=== PATIENT | male | born 1955 | race Caucasian/White ===

== ENCOUNTER 2023-05-29 02:50 | Inpatient (IN) | payer MEDICARE, MEDICAID ==
[~2023-05-29] VITALS: Ht 172.7 cm; Wt 83.3 kg
[2023-05-29] VITALS (28 sets, daily range): BP systolic 83–177; BP diastolic 41–76
[~2023-05-29 02:50] MED LIST: ALBU18HF2 INH; ATOR40TA72 PO; BISO10TA16 PO; BUPR300T86 PO; CLOP75TA34 PO; IPRA4AER PO; LISI20TA28 PO; SPIR25TA5 PO
[2023-05-29 03:22] LABS: ABG BASE EXCESS -18.9 mmol/L (-2.0-2.0); ABG HCO3 11.4 mmol/L (22.0-26.0); ABG OXYGEN SATURATION 99.5 % (94-97); ABG PO2 (T) 489.9 mmHg (75.0-100.0); ALLEN'S TEST POSITIVE; FMetHb 0.5 % (0.0-1.5); PATIENT TEMPERATURE 35.4; PEEP 5 cm H2O; RESPIRATORY RATE 18 b/min; TIDAL VOLUME 500 mL; TOTAL HEMOGLOBIN 16.7 G/dl (14.0-17.9)
--- NOTE | 2023-05-29 03:33 | NUR ---
PTS GIRLFRIEND MANNIE AT BEDSIDE, SHE IS UNAWARE OF HIS MEDICAL HISTORY. SHE DOES NOT KNOW OF ANY LOCAL FAMILY WHO WE CAN CONTACT FOR THIS INFORMATION
--- NOTE | 2023-05-29 03:37 | NUR ---
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
--- NOTE | 2023-05-29 03:37 | NUR ---
DAUGHTER SHANELL CALLED, VOICEMAIL LEFT
--- NOTE | 2023-05-29 03:42 | NUR ---
7.5 ET TUBE 26 AT THE TEETH
[2023-05-29 03:53] LABS: ALANINE AMINOTRANSFERASE 99 U/L (12-78); ALBUMIN 2.9 G/DL (3.4-5.0); ALBUMIN/GLOBULIN RATIO 0.9 (1.1-1.5); ALKALINE PHOSPHATASE 114 IU/L (46-116); ANION GAP 19 (8-16); BILIRUBIN,TOTAL 0.4 MG/DL (0.1-1.0); BLOOD UREA NITROGEN 33 MG/DL (7-18); BUN/CREATININE RATIO 11.3 (10.0-20.0); CALCIUM 9.9 MG/DL (8.5-10.1); CHLORIDE 108 MMOL/L (99-107); CREATININE 2.92 MG/DL (0.60-1.10); GLUCOSE 260 MG/DL (70-104); SODIUM 144 MMOL/L (135-145); TOTAL CARBON DIOXIDE 16.6 MMOL/L (24-32); eGFR 21 ML/MIN
[2023-05-29 03:55] LABS: BASOPHILS # (AUTO) 0.1 X10'3 (0-0.2); BASOPHILS % (AUTO) 0.4 % (0-1); EOSINOPHILS # (AUTO) 1.4 X10'3 (0-0.9); EOSINOPHILS % (AUTO) 4.6 % (0-6); HEMATOCRIT 48.4 % (42.0-52.0); HEMOGLOBIN 15.6 g/dl (14.0-17.9); LYMPHOCYTES # (AUTO) 8.4 X10'3 (1.1-4.8); LYMPHOCYTES % (AUTO) 28.5 % (21-51); MEAN CORPUSCULAR HEMOGLOBIN 30.2 PG (27.0-31.0); MEAN CORPUSCULAR HGB CONC 32.3 g/dL (33.0-36.5); MEAN CORPUSCULAR VOLUME 93.5 FL (78-98); MEAN PLATELET VOLUME 9.8 FL (7.4-10.4); MONOCYTES # (AUTO) 1.1 X10'3 (0-0.9); MONOCYTES % (AUTO) 3.8 % (2-12); NEUTROPHILS # (AUTO) 18.6 X10'3 (1.8-7.7); NEUTROPHILS % (AUTO) 62.7 % (42-75); PLATELET COUNT 253 X10'3 (140-440); POTASSIUM 4.4 MMOL/L (3.5-5.1); RED BLOOD COUNT 5.18 X10'6 (4.70-6.10); RED CELL DISTRIBUTION WIDTH 13.4 % (11.5-14.5)
[2023-05-29] MEDS ORDERED: methylPREDNISolone sod succ 125mg/2ml vial IV ONE (03:55)
[2023-05-29 04:00] LABS: CLARITY,URINE CLOUDY (Clear); COLOR,URINE YELLOW (Yellow); GLUCOSE, URINE NEGATIVE (Neg); KETONES,URINE NEGATIVE (Neg); LEUKOCYTE ESTERASE ,URINE TRACE (Neg); NITRITES, URINE NEGATIVE (Neg); OCCULT BLOOD,URINE MODERATE (Neg); PROTEIN,URINE >=300 mg/dl (Neg); UROBILINOGEN,URINE 0.2 E.U/dL (0.2-1.0)
[2023-05-29] MEDS ORDERED: piperacillin/tazo 3.375gm/50ml 50 ML IV ONE ×2 (04:00→13:35)
[2023-05-29 04:01] LABS: UA COLLECTION TYPE NON-SPECIFIED
[2023-05-29] MEDS ORDERED: ipratropium/albuterol 3ml nebule NEB ONE (04:05)
[2023-05-29] MEDS ORDERED: iohexol 350MG/ML 100ml bottle IV ONE (04:09)
[2023-05-29 04:10] LABS: ASPARTATE AMINO TRANSFERASE 129 U/L (10-37)
--- NOTE | 2023-05-29 04:12 | NUR ---
WORLD HISTORY TEACHER CALLED AT 03:45. CALL GIVEN TO DR. FIERRO TO DISCUSS PT.
--- NOTE | 2023-05-29 04:13 | NUR ---
PT RECEIVED 1L BOLUS NS RESPIRATORY EQUIPMENT ASSISTANT. PER DR FIERRO NO MORE FLUIDS AT THIS TIME
[2023-05-29 04:18] LABS: WHITE BLOOD COUNT 29.7 X10'3 (4.5-11.0)
[2023-05-29 04:25] LABS: BACTERIA,URINE NONE SEEN /HPF (Neg); WBC,URINE 30-50 /HPF (0-4)
[2023-05-29 04:26] LABS: TRANSITIONAL EPI CELLS,URINE FEW /HPF
[2023-05-29 04:28] LABS: SPERM MANY /HPF (NEGATIVE)
[2023-05-29] MEDS ORDERED: ketamine 50 mg/ml 10ml vial IV ONE (04:35)
[2023-05-29] MEDS ORDERED: magnesium 4gm in 100ml NS 100 ML IV ONE (04:40)
[2023-05-29] MEDS ORDERED: magnesium 2GM in 50ml NS 50 ML IV ONE (04:40)
[2023-05-29] MEDS ORDERED: furosemide 10 MG/1 ML 10ml inj IV ONE (04:40)
[2023-05-29] MEDS ORDERED: ketamine 10mg/ml 20ml inj 100 MG in normal saline 100ml IV soln 90 ML IV SCH (04:40)
[2023-05-29] MEDS ORDERED: potassium Cl 40MEQ/1/2NS 520ml 520 ML IV PRN (04:50)
[2023-05-29] MEDS ORDERED: PERFLUTREN PROTEIN-A MICROSPHR (Optison) 0.22 MG/ML 3ML VIAL IV ONE (04:50)
[2023-05-29] MEDS ORDERED: mag hydrox/Alum hydrox/simeth 30ml oral suspension PO PRN (04:50)
[2023-05-29] MEDS ORDERED: acetaminophen 325mg tablet PO PRN (04:50)
[2023-05-29] MEDS ORDERED: potassium Cl 20 mEq SR tablet PO PRN ×2 (04:50)
[2023-05-29] MEDS ORDERED: magnesium 2GM in 50ml NS 50 ML IV PRN (04:50)
[2023-05-29] MEDS ORDERED: magnesium hydroxide 30ml (MOM) UD suspension PO PRN (04:50)
[2023-05-29] MEDS ORDERED: ketamine 50mg/5ml syringe IV ONE (04:50)
[2023-05-29] MEDS ORDERED: magnesium Cl slow-release 64mg tablet PO PRN (04:50)
[2023-05-29] MEDS ORDERED: magnesium 4gm in 100ml NS 100 ML IV PRN (04:50)
[2023-05-29] MEDS ORDERED: insulin glargine (Lantus) pen - multi-dose SQ ONE (05:20)
--- NOTE | 2023-05-29 05:21 | NUR ---
PTS BROTHER CALLED FAMILY WISHES FULL CODE STATUS
[2023-05-29] MEDS ORDERED: NORepinephrine 8mg/ 250ml NS 250 ML IV ONE (05:27)
--- NOTE | 2023-05-29 05:33 | NUR ---
ECHO PAGED AT 05:25. WILL PAGE AGAIN AT 05:35 IF NOT CONTACTED.
--- NOTE | 2023-05-29 05:36 | NUR ---
NO RESPONSE FROM ECHO FOR THE 05:25 PAGE. PAGED AGAIN 05:36.
[2023-05-29 05:38] LABS: ABG BASE EXCESS -11.6 mmol/L (-2.0-2.0); ABG OXYGEN SATURATION 92.9 % (94-97); ABG PCO2 (T) 39.1 mmHg (35.0-48.0); ABG PO2 (T) 64.5 mmHg (75.0-100.0); ALLEN'S TEST POSITIVE; FMetHb 0.3 % (0.0-1.5); FO2Hb 90.8 % (94-97); PATIENT TEMPERATURE 35.5; PEEP 5 cm H2O; RESPIRATORY RATE 22 b/min; TIDAL VOLUME 500 mL
[2023-05-29] MEDS: NORepinephrine 8mg/ 250ml NS 250 ML IV SCH ×2 (05:38→20:00)
[2023-05-29] MEDS ORDERED: fentaNYL/PF 50MCG/1 ML 2ML syringe ONE (05:45)
[2023-05-29] MEDS ORDERED: fentaNYL/PF 50MCG/1 ML 2ML syringe IV ONE (05:45)
--- NOTE | 2023-05-29 05:46 | NUR ---
DIRECT NUMBER TO ECHO WAS GIVEN BY HOUSE SUP. CONTACTED AND THEY ARE ON THEIR WAY IN.
--- NOTE | 2023-05-29 05:55 | NUR ---
Karen Álvarez, daughter, given update. She lives in [place]. [phone]
[2023-05-29 06:04] LABS: TOTAL CELLS COUNTED 100
[2023-05-29 06:06] LABS: PLATELET ESTIMATE NORMAL
[2023-05-29] MEDS ORDERED: NORepinephrine 8mg/ 250ml NS 250 ML IV PRN (06:15)
--- NOTE | 2023-05-29 06:24 | NUR ---
KETAMINE DRIP STARTED AT 1.99 MCG/KG/MIN
[2023-05-29 06:58] LABS: URINE AMPHETAMINE SCREEN NEGATIVE (Neg); URINE BARBITUATE SCREEN NEGATIVE (Neg); URINE BENZODIAZEPINES SCREEN NEGATIVE (Neg); URINE CANNABINOID SCREEN NEGATIVE (Neg); URINE COCAINE SCREEN NEGATIVE (Neg); URINE METHADONE SCREEN NEGATIVE (Neg); URINE OPIATE SCREEN NEGATIVE (Neg); URINE PHENCYCLIDINE SCREEN NEGATIVE (Neg)
[2023-05-29 07:23] LABS: POTASSIUM 5.7 MMOL/L (3.5-5.1)
[2023-05-29] MEDS ORDERED: epiNEPHrine 0.1mg/ml 10ml syringe ONE (08:00)
[2023-05-29] MEDS ORDERED: sodium bicarbonate (8.4%) 1 mEq/ml syringe ONE (08:00)
[2023-05-29] MEDS ORDERED: heparin, porcine 5000 units/ml vial SQ SCH (08:00)
[2023-05-29] MEDS ORDERED: albuterol 2.5 MG/3 ML nebule NEB SCH (08:00)
[2023-05-29] MEDS ORDERED: rocuronium 10mg/ml inj IV ONE ×2 (08:00→11:45)
[2023-05-29] MEDS: K and/or MAG REPLACEMENT MC SCH ×2 (08:00→19:54)
[2023-05-29] MEDS ORDERED: docusate sod 100mg capsule PO SCH (08:00)
[2023-05-29] MEDS ORDERED: sod chloride 0.9% 10ml flush syringe IV ONE (08:00)
[2023-05-29] MEDS ORDERED: calcium chloride 100 MG/1 ML inj IV ONE (08:00)
[2023-05-29] MEDS: albuterol 2.5 MG/3 ML nebule NEB PRN (08:57)
[2023-05-29] MEDS ORDERED: CISatracurium **Bolus** 2 mg/ml inj IV PRN (09:00)
[2023-05-29] MEDS ORDERED: fentaNYL/PF 50MCG/1 ML 2ML syringe IV PRN (09:00)
[2023-05-29] MEDS ORDERED: pantoprazole 40mg IV 80 MG in normal saline 100ml IV soln 100 ML IV SCH (09:05)
[2023-05-29] MEDS: FENTANYL-0.9 % NACL/PF 100 ML IV PRN ×2 (09:47→19:09)
[2023-05-29] MEDS: propofol 1000mg/100ml bottle 100 ML IV SCH (09:47)
[2023-05-29] MEDS: montelukast 10mg tablet PO SCH (10:41)
[2023-05-29] MEDS: niCARDipine-NS 40mg/200ml IVPB 250 ML IV PRN (10:42)
[2023-05-29 11:01] LABS: ALBUMIN 3.2 G/DL (3.4-5.0); ANION GAP 16 (8-16); BLOOD UREA NITROGEN 41 MG/DL (7-18); BUN/CREATININE RATIO 14.7 (10.0-20.0); CALCIUM 8.6 MG/DL (8.5-10.1); CHLORIDE 110 MMOL/L (99-107); CREATININE 2.78 MG/DL (0.60-1.10); GLUCOSE 209 MG/DL (70-104); MAGNESIUM 3.7 MG/DL (1.5-2.4); PHOSPHORUS 3.6 MG/DL (2.3-4.5); POTASSIUM 4.2 MMOL/L (3.5-5.1); SODIUM 142 MMOL/L (135-145); TOTAL CARBON DIOXIDE 16.1 MMOL/L (24-32); eGFR 23 ML/MIN
[2023-05-29] MEDS: ipratropium/albuterol 3ml nebule NEB SCH ×4 (11:06→22:53)
[2023-05-29 11:19] LABS: ABG BASE EXCESS -10.4 mmol/L (-2.0-2.0); ABG HCO3 15.7 mmol/L (22.0-26.0); ABG OXYGEN SATURATION 94.5 % (94-97); ABG PCO2 (T) 29.4 mmHg (35.0-48.0); FCOHb 0.7 % (0.0-3.9); FMetHb 0.5 % (0.0-1.5); FO2Hb 93.4 % (94-97); PATIENT TEMPERATURE 32.6; PEEP 5 cm H2O; RESPIRATORY RATE 22 b/min; TIDAL VOLUME 500 mL; TOTAL HEMOGLOBIN 17.7 G/dl (14.0-17.9)
[2023-05-29] MEDS: CISatracurium besylate inj. 100 MG in normal saline 100ml IV soln 90 ML IV PRN (12:39)
[2023-05-29] MEDS ORDERED: DEXTROSE 15 GM of carb/4 tabs (each vial/BOTTLE has 4 tablets) PO PRN ×2 (13:25)
[2023-05-29] MEDS ORDERED: glucagon, human recombinant 1mg kit SUBCUT PRN (13:25)
[2023-05-29] MEDS ORDERED: dextrose 50%-water 50ml dispensing syringe IV PRN (13:25)
[2023-05-29] MEDS ORDERED: vancomycin 1,750 MG in NS 350ml IV soln IV ONE (13:55)
[2023-05-29] MEDS: insulin Lispro (HumaLOG) vial - multi-dose SQ SCH ×2 (14:17→20:25)
[2023-05-29] MEDS: methylPREDNISolone sod succ/PF 40mg inj. IV SCH ×2 (15:20→23:59)
[2023-05-29 16:51] LABS: ANION GAP 15 (8-16); BLOOD UREA NITROGEN 42 MG/DL (7-18); BUN/CREATININE RATIO 14.7 (10.0-20.0); CALCIUM 8.2 MG/DL (8.5-10.1); CHLORIDE 111 MMOL/L (99-107); CREATININE 2.86 MG/DL (0.60-1.10); GLUCOSE 188 MG/DL (70-104); POTASSIUM 4.3 MMOL/L (3.5-5.1); SODIUM 143 MMOL/L (135-145); eGFR 22 ML/MIN
--- NOTE | 2023-05-29 17:01 | NUR ---
Critical Lactic Acid 5.[address] Frazier called with orders to recheck ABG. Hold off on fluids for right now as CVP 13 and SBP 150. Procal pending. Trop elevated at 531; trending down, aware.
[2023-05-29 17:10] LABS: APTT 28 SECONDS (22-32)
[2023-05-29 17:24] LABS: ABG BASE EXCESS -12.7 mmol/L (-2.0-2.0); ABG HCO3 13.9 mmol/L (22.0-26.0); ABG OXYGEN SATURATION 98.3 % (94-97); ABG PCO2 (T) 29.2 mmHg (35.0-48.0); ABG PO2 (T) 112.1 mmHg (75.0-100.0); FCOHb 0.3 % (0.0-3.9); FMetHb 0.4 % (0.0-1.5); FO2Hb 97.6 % (94-97); PEEP 5 cm H2O; RESPIRATORY RATE 22 b/min; TIDAL VOLUME 500 mL; TOTAL HEMOGLOBIN 16.9 G/dl (14.0-17.9)
[2023-05-29] MEDS ORDERED: SODIUM BICARB 150mEq/D5W 1L 1,000 ML IV SCH (17:35)
--- NOTE | 2023-05-29 17:35 | NUR ---
Repeat ABG result with pH 7.27 and Bicarb down to 13.9. Dr. Frazier notified. Orders for 150ml/hour of Bicarb drip. aware of decreasing urinary output.
[2023-05-29 18:07] LABS: CREATINE KINASE 953 U/L (39-308)
[2023-05-29] MEDS: sodium bicarbonate 1meq/ml syr 150 ML in dextrose 5%-water 1,000 ML IV SCH (18:11)
--- NOTE | 2023-05-29 18:16 | NUR ---
Problems reprioritized. Patient report given, questions answered & plan of care reviewed with Gabby SANCHEZ.
--- NOTE | 2023-05-29 18:30 | NUR ---
Patient in room ICU 2042. I have received report from Dung SANCHEZ and had the opportunity to ask questions and assume patient care.
[2023-05-29] MEDS: docusate sodium 100mg/10ml UD cup PO SCH (20:02)
--- NOTE | 2023-05-29 20:05 | NUR ---
TOF 0/4 and BIZ at 10, reduced fentanyl gtt rate and halved Nimbex rate.
--- NOTE | 2023-05-29 20:30 | NUR ---
Pt BP and HR increase with stimulation such as turning or oral care. Cardene and Levophed being titrated to keep BP with map above 65 and SBP below 170.
[2023-05-29 20:57] LABS: ABG BASE EXCESS -12.3 mmol/L (-2.0-2.0); ABG HCO3 15.5 mmol/L (22.0-26.0); ABG OXYGEN SATURATION 95.9 % (94-97); ABG PCO2 (T) 35.3 mmHg (35.0-48.0); ABG PO2 (T) 68.7 mmHg (75.0-100.0); ALLEN'S TEST POSITIVE; FCOHb 0.1 % (0.0-3.9); FMetHb 0.4 % (0.0-1.5); FO2Hb 95.4 % (94-97); PEEP 5 cm H2O; RESPIRATORY RATE 22 b/min; TIDAL VOLUME 500 mL; TOTAL HEMOGLOBIN 16.9 G/dl (14.0-17.9)
[2023-05-29] MEDS: piperacillin/tazo 3.375gm/50ml 50 ML IV SCH (22:04)
[2023-05-29] MEDS ORDERED: ROSU5TAB PO (22:42)
[2023-05-29 23:19] LABS: ALBUMIN 2.6 G/DL (3.4-5.0); ANION GAP 17 (8-16); BLOOD UREA NITROGEN 41 MG/DL (7-18); BUN/CREATININE RATIO 13.9 (10.0-20.0); CALCIUM 7.6 MG/DL (8.5-10.1); CHLORIDE 107 MMOL/L (99-107); CREATININE 2.94 MG/DL (0.60-1.10); GLUCOSE 327 MG/DL (70-104); MAGNESIUM 2.5 MG/DL (1.5-2.4); PHOSPHORUS 3.8 MG/DL (2.3-4.5); POTASSIUM 3.7 MMOL/L (3.5-5.1); SODIUM 141 MMOL/L (135-145); TOTAL CARBON DIOXIDE 17.4 MMOL/L (24-32); eGFR 21 ML/MIN
--- NOTE | 2023-05-29 23:32 | NUR ---
Critical LA of 6.[address] Nash, no change in current orders. Blood sugars now over 300, Order to start Insulin gtt.
[2023-05-29] MEDS: Insulin Reg/NS 100units/100mL 100 ML IV SCH (23:52)
[2023-05-30] VITALS (35 sets, daily range): BP systolic 86–167; BP diastolic 33–90
[2023-05-30] MEDS: CISatracurium besylate inj. 100 MG in normal saline 100ml IV soln 90 ML IV PRN (00:01)
[2023-05-30] MEDS: sodium bicarbonate 1meq/ml syr 150 ML in dextrose 5%-water 1,000 ML IV SCH ×3 (01:36→17:04)
[2023-05-30] MEDS: ipratropium/albuterol 3ml nebule NEB SCH ×6 (03:03→22:57)
[2023-05-30 03:13] LABS: ABG BASE EXCESS -8.9 mmol/L (-2.0-2.0); ABG HCO3 17.3 mmol/L (22.0-26.0); ABG OXYGEN SATURATION 96.8 % (94-97); ABG PCO2 (T) 32.4 mmHg (35.0-48.0); ABG PO2 (T) 69.2 mmHg (75.0-100.0); FCOHb 0.2 % (0.0-3.9); FMetHb 0.3 % (0.0-1.5); FO2Hb 96.3 % (94-97); PATIENT TEMPERATURE 33.2; PEEP 5 cm H2O; RESPIRATORY RATE 22 b/min; TIDAL VOLUME 500 mL; TOTAL HEMOGLOBIN 16.3 G/dl (14.0-17.9)
[2023-05-30] MEDS: propofol 1000mg/100ml bottle 100 ML IV SCH ×2 (04:53→20:00)
[2023-05-30 05:06] LABS: APTT 26 SECONDS (22-32)
[2023-05-30 05:09] LABS: BASOPHILS % (AUTO) 0.1 % (0-1); EOSINOPHILS % (AUTO) 0 % (0-6); HEMATOCRIT 44.5 % (42.0-52.0); HEMOGLOBIN 14.6 g/dl (14.0-17.9); LYMPHOCYTES # (AUTO) 0.6 X10'3 (1.1-4.8); LYMPHOCYTES % (AUTO) 2.6 % (21-51); MEAN CORPUSCULAR HEMOGLOBIN 29.9 PG (27.0-31.0); MEAN CORPUSCULAR HGB CONC 32.8 g/dL (33.0-36.5); MEAN CORPUSCULAR VOLUME 91.1 FL (78-98); MEAN PLATELET VOLUME 9.6 FL (7.4-10.4); MONOCYTES # (AUTO) 0.5 X10'3 (0-0.9); NEUTROPHILS # (AUTO) 22.4 X10'3 (1.8-7.7); NEUTROPHILS % (AUTO) 95.3 % (42-75); PLATELET COUNT 187 X10'3 (140-440); RED BLOOD COUNT 4.88 X10'6 (4.70-6.10); RED CELL DISTRIBUTION WIDTH 12.9 % (11.5-14.5); WHITE BLOOD COUNT 23.5 X10'3 (4.5-11.0)
[2023-05-30 05:16] LABS: ALANINE AMINOTRANSFERASE 87 U/L (12-78); ALBUMIN 2.6 G/DL (3.4-5.0); ALKALINE PHOSPHATASE 73 IU/L (46-116); ANION GAP 17 (8-16); ASPARTATE AMINO TRANSFERASE 59 U/L (10-37); BILIRUBIN,TOTAL 0.5 MG/DL (0.1-1.0); BLOOD UREA NITROGEN 41 MG/DL (7-18); BUN/CREATININE RATIO 14.3 (10.0-20.0); CALCIUM 7.4 MG/DL (8.5-10.1); CHLORIDE 106 MMOL/L (99-107); CREATININE 2.86 MG/DL (0.60-1.10); GLUCOSE 328 MG/DL (70-104); MAGNESIUM 2.3 MG/DL (1.5-2.4); PHOSPHORUS 3.3 MG/DL (2.3-4.5); SODIUM 143 MMOL/L (135-145); TOTAL CARBON DIOXIDE 19.8 MMOL/L (24-32); TOTAL PROTEIN 5.3 G/DL (6.4-8.2); TRIGLYCERIDES 114 MG/DL (20-135); eGFR 22 ML/MIN
[2023-05-30] MEDS ORDERED: potassium Cl 40MEQ/270ML bag 270 ML IV PRN (05:50)
[2023-05-30] MEDS: piperacillin/tazo 3.375gm/50ml 50 ML IV SCH ×3 (06:04→22:25)
--- NOTE | 2023-05-30 06:21 | NUR ---
Problems reprioritized. Patient report given, questions answered & plan of care reviewed with Bin SANCHEZ.
[2023-05-30] MEDS ORDERED: potassium Cl 40MEQ/270ML bag 270 ML IV ONE ×2 (06:25→08:25)
[2023-05-30] MEDS: docusate sodium 100mg/10ml UD cup PO SCH ×2 (07:46→20:31)
[2023-05-30] MEDS: K and/or MAG REPLACEMENT MC SCH ×2 (08:00→20:00)
[2023-05-30] MEDS: methylPREDNISolone sod succ/PF 40mg inj. IV SCH ×2 (08:40→17:25)
[2023-05-30] MEDS: montelukast 10mg tablet PO SCH (08:40)
--- NOTE | 2023-05-30 10:10 | NUR ---
Dr Frazier rounded. [facility]
[2023-05-30] MEDS ORDERED: pantoprazole 40 MG vial IV SCH (10:35)
[2023-05-30] MEDS: NORepinephrine 8mg/ 250ml NS 250 ML IV SCH (10:40)
--- NOTE | 2023-05-30 10:43 | NUR ---
Nimbex has cleared, pt having myoclonic jerks. Sedated with propofol and fentanyl.
--- NOTE | 2023-05-30 10:46 | NUR ---
Skyler Consult: Pt intubated admit DX COPD exacerbation s/p cardiopulmonary arrest currently on hypothermia protocol Skyler 11 w/ skin intact per EMR. OG in place MAP 56-73 this AM per EMR. TF recs below in case to start. Noted pt receiving Propofol at 2.727ml/hr (72 kcals/day) and Na-bicarb/D5W at 150ml/hr (612 kcals/day). Glu 239-328mg/dl on insulin drip as well as solumedrol w/ no PMH DM per EMR. Will monitor for nutrition intervention needs this admit. Rec: 1. IF TF; Vital AF at 80ml/hr goal would provide 1920ml volume/day, 2304 kcals, 1557ml water, and 144g protein. Monitor Propofol and Na-bicarb/D5W rates for EN adjustment needs. 2. IF TF; additional water flush 125ml Q4H 3. IF TF; PALB Q / 4. routine bowel care 5. daily scaled wt Addendum: 05/30/23 at [address] Amended: Links added.
[2023-05-30] MEDS: pantoprazole 40MG/NS 100ML BAG 100 ML IV SCH ×2 (10:51→20:31)
[2023-05-30] MEDS: Insulin Reg/NS 100units/100mL 100 ML IV SCH (10:52)
[2023-05-30 11:07] LABS: ABG BASE EXCESS -4.7 mmol/L (-2.0-2.0); ABG HCO3 23.7 mmol/L (22.0-26.0); ABG OXYGEN SATURATION 91.9 % (94-97); ABG PCO2 (T) 48.9 mmHg (35.0-48.0); ABG PO2 (T) 51.3 mmHg (75.0-100.0); FCOHb 0.2 % (0.0-3.9); FMetHb 0.4 % (0.0-1.5); FO2Hb 91.3 % (94-97); PATIENT TEMPERATURE 33.5; PEEP 5 cm H2O; RESPIRATORY RATE 22 b/min; TIDAL VOLUME 500 mL; TOTAL HEMOGLOBIN 16.3 G/dl (14.0-17.9)
[2023-05-30 11:38] LABS: ALANINE AMINOTRANSFERASE 84 U/L (12-78); ALBUMIN 2.7 G/DL (3.4-5.0); ALBUMIN/GLOBULIN RATIO 0.9 (1.1-1.5); ALKALINE PHOSPHATASE 78 IU/L (46-116); ANION GAP 12 (8-16); ASPARTATE AMINO TRANSFERASE 58 U/L (10-37); BILIRUBIN,TOTAL 0.4 MG/DL (0.1-1.0); BLOOD UREA NITROGEN 37 MG/DL (7-18); CALCIUM 7.3 MG/DL (8.5-10.1); CHLORIDE 107 MMOL/L (99-107); CREATININE 2.64 MG/DL (0.60-1.10); GLUCOSE 226 MG/DL (70-104); MAGNESIUM 2.2 MG/DL (1.5-2.4); PHOSPHORUS 3.4 MG/DL (2.3-4.5); POTASSIUM 3.2 MMOL/L (3.5-5.1); SODIUM 142 MMOL/L (135-145); TOTAL CARBON DIOXIDE 23.5 MMOL/L (24-32); TOTAL PROTEIN 5.7 G/DL (6.4-8.2); eGFR 24 ML/MIN
[2023-05-30] MEDS: albuterol 2.5 MG/3 ML nebule NEB PRN (14:29)
[2023-05-30] MEDS: dextrose 50%-water 50ml dispensing syringe IV PRN ×3 (14:34→18:16)
[2023-05-30] MEDS: vancomycin inj 500 MG in normal saline 100ml IV soln 100 ML IV SCH (14:43)
--- NOTE | 2023-05-30 17:00 | NUR ---
Informed Dr Frazier of pt's oliguria.
[2023-05-30 18:47] LABS: ALBUMIN 2.5 G/DL (3.4-5.0); ANION GAP 7 (8-16); BLOOD UREA NITROGEN 38 MG/DL (7-18); BUN/CREATININE RATIO 14.5 (10.0-20.0); CALCIUM 6.9 MG/DL (8.5-10.1); CHLORIDE 105 MMOL/L (99-107); CREATININE 2.62 MG/DL (0.60-1.10); GLUCOSE 169 MG/DL (70-104); MAGNESIUM 2.1 MG/DL (1.5-2.4); PHOSPHORUS 4.6 MG/DL (2.3-4.5); SODIUM 142 MMOL/L (135-145); TOTAL CARBON DIOXIDE 29.6 MMOL/L (24-32); eGFR 24 ML/MIN
[2023-05-30] MEDS ORDERED: heparin, porcine 5000 units/ml vial SQ SCH (20:00)
--- NOTE | 2023-05-30 20:29 | NUR ---
Called Dr Nash and informed him of pt's ongoing hypoglycemia. Received order to start D10 at 50 mL/hr. Also got ok to reduce ventilatory rate to 12 per Kirby, RT request.
[2023-05-30] MEDS ORDERED: Dextrose 10%-water IV solution 1,000 ML IV SCH (20:30)
[2023-05-30 21:05] LABS: ABG BASE EXCESS 1.2 mmol/L (-2.0-2.0); ABG HCO3 27.1 mmol/L (22.0-26.0); ABG OXYGEN SATURATION 98.4 % (94-97); ABG PCO2 (T) 44.6 mmHg (35.0-48.0); ABG PO2 (T) 122.3 mmHg (75.0-100.0); ALLEN'S TEST POSITIVE; FCOHb 0.3 % (0.0-3.9); FMetHb 0.5 % (0.0-1.5); FO2Hb 97.6 % (94-97); PATIENT TEMPERATURE 35.4; PEEP 5 cm H2O; RESPIRATORY RATE 12 b/min; TIDAL VOLUME 500 mL; TOTAL HEMOGLOBIN 14.4 G/dl (14.0-17.9)
[2023-05-31] VITALS (33 sets, daily range): BP systolic 90–166; BP diastolic 46–82
[2023-05-31 00:01] LABS: ALBUMIN 2.6 G/DL (3.4-5.0); ANION GAP 10 (8-16); BLOOD UREA NITROGEN 39 MG/DL (7-18); BUN/CREATININE RATIO 13.5 (10.0-20.0); CALCIUM 6.8 MG/DL (8.5-10.1); CHLORIDE 102 MMOL/L (99-107); CREATININE 2.88 MG/DL (0.60-1.10); GLUCOSE 128 MG/DL (70-104); MAGNESIUM 1.9 MG/DL (1.5-2.4); PHOSPHORUS 4.7 MG/DL (2.3-4.5); POTASSIUM 3.6 MMOL/L (3.5-5.1); SODIUM 143 MMOL/L (135-145); eGFR 22 ML/MIN
--- NOTE | 2023-05-31 00:17 | NUR ---
Problems reprioritized. Patient report given, questions answered & plan of care reviewed with LAURA Pierre.
--- NOTE | 2023-05-31 00:20 | NUR ---
Patient in room ICU 2042. I have received report from Bin SANCHEZ and had the opportunity to ask questions and assume patient care.
[2023-05-31] MEDS: methylPREDNISolone sod succ/PF 40mg inj. IV SCH ×3 (00:26→15:45)
[2023-05-31] MEDS: sodium bicarbonate 1meq/ml syr 150 ML in dextrose 5%-water 1,000 ML IV SCH (00:27)
[2023-05-31] MEDS: dextrose 5%-normal saline 1,000 ML IV SCH ×3 (00:58→15:27)
[2023-05-31] MEDS: FENTANYL-0.9 % NACL/PF 100 ML IV PRN ×2 (00:59→07:37)
--- NOTE | 2023-05-31 01:34 | NUR ---
Rounds with Dr Nash, IV fluids changed.
[2023-05-31] MEDS: ipratropium/albuterol 3ml nebule NEB SCH ×6 (02:36→23:02)
[2023-05-31 02:46] LABS: ABG BASE EXCESS 4.5 mmol/L (-2.0-2.0); ABG HCO3 29.3 mmol/L (22.0-26.0); ABG OXYGEN SATURATION 95.9 % (94-97); ABG PCO2 (T) 43.1 mmHg (35.0-48.0); ABG PO2 (T) 75.3 mmHg (75.0-100.0); FMetHb 0.3 % (0.0-1.5); FO2Hb 95.6 % (94-97); PATIENT TEMPERATURE 36.6; PEEP 5 cm H2O; RESPIRATORY RATE 12 b/min; TIDAL VOLUME 500 mL; TOTAL HEMOGLOBIN 14.2 G/dl (14.0-17.9)
[2023-05-31] MEDS: propofol 1000mg/100ml bottle 100 ML IV SCH (03:13)
[2023-05-31] MEDS: NORepinephrine 8mg/ 250ml NS 250 ML IV SCH ×2 (05:18→15:46)
[2023-05-31 05:28] LABS: APTT 25 SECONDS (22-32)
[2023-05-31 05:31] LABS: ALANINE AMINOTRANSFERASE 74 U/L (12-78); ALBUMIN 2.5 G/DL (3.4-5.0); ALBUMIN/GLOBULIN RATIO 0.9 (1.1-1.5); ALKALINE PHOSPHATASE 63 IU/L (46-116); ANION GAP 11 (8-16); ASPARTATE AMINO TRANSFERASE 132 U/L (10-37); BILIRUBIN,TOTAL 0.6 MG/DL (0.1-1.0); BLOOD UREA NITROGEN 41 MG/DL (7-18); BUN/CREATININE RATIO 13.4 (10.0-20.0); CALCIUM 6.7 MG/DL (8.5-10.1); CHLORIDE 101 MMOL/L (99-107); CREATININE 3.06 MG/DL (0.60-1.10); GLUCOSE 210 MG/DL (70-104); MAGNESIUM 1.8 MG/DL (1.5-2.4); PHOSPHORUS 4.1 MG/DL (2.3-4.5); SODIUM 141 MMOL/L (135-145); TOTAL CARBON DIOXIDE 28.6 MMOL/L (24-32); TOTAL PROTEIN 5.2 G/DL (6.4-8.2); eGFR 20 ML/MIN
[2023-05-31 05:32] LABS: BASOPHILS # (AUTO) 0.2 X10'3 (0-0.2); BASOPHILS % (AUTO) 0.6 % (0-1); EOSINOPHILS # (AUTO) 1.1 X10'3 (0-0.9); EOSINOPHILS % (AUTO) 3.3 % (0-6); HEMATOCRIT 39.2 % (42.0-52.0); LYMPHOCYTES # (AUTO) 0.6 X10'3 (1.1-4.8); LYMPHOCYTES % (AUTO) 1.7 % (21-51); MEAN CORPUSCULAR HEMOGLOBIN 29.8 PG (27.0-31.0); MEAN CORPUSCULAR HGB CONC 33.3 g/dL (33.0-36.5); MEAN CORPUSCULAR VOLUME 89.4 FL (78-98); MEAN PLATELET VOLUME 9.6 FL (7.4-10.4); MONOCYTES # (AUTO) 0.3 X10'3 (0-0.9); NEUTROPHILS # (AUTO) 31.9 X10'3 (1.8-7.7); NEUTROPHILS % (AUTO) 93.4 % (42-75); PLATELET COUNT 221 X10'3 (140-440); RED BLOOD COUNT 4.38 X10'6 (4.70-6.10); RED CELL DISTRIBUTION WIDTH 13.2 % (11.5-14.5)
[2023-05-31 05:45] LABS: WHITE BLOOD COUNT 34.1 X10'3 (4.5-11.0)
[2023-05-31] MEDS: piperacillin/tazo 3.375gm/50ml 50 ML IV SCH ×3 (06:02→22:59)
[2023-05-31 06:10] LABS: PLATELET ESTIMATE NORMAL; TOTAL CELLS COUNTED 100
--- NOTE | 2023-05-31 06:35 | NUR ---
Problems reprioritized. Patient report given, questions answered & plan of care reviewed with Hanny SANCHEZ.
[2023-05-31] MEDS: insulin Lispro (HumaLOG) vial - multi-dose SQ SCH (07:38)
[2023-05-31] MEDS: docusate sodium 100mg/10ml UD cup PO SCH ×2 (07:50→20:00)
[2023-05-31] MEDS: pantoprazole 40MG/NS 100ML BAG 100 ML IV SCH ×2 (07:51→20:23)
[2023-05-31] MEDS: montelukast 10mg tablet PO SCH (07:53)
[2023-05-31] MEDS: K and/or MAG REPLACEMENT MC SCH ×2 (07:53→20:00)
--- NOTE | 2023-05-31 10:31 | NUR ---
ROUNDS NOTE: DC all sedation DNR Remain NPO Start Heparin
[2023-05-31] MEDS: albuterol 2.5 MG/3 ML nebule NEB PRN (10:34)
[2023-05-31] MEDS: niCARDipine-NS 40mg/200ml IVPB 250 ML IV PRN ×2 (10:53→23:00)
[2023-05-31] MEDS: heparin, porcine 5000 units/ml vial SQ SCH ×2 (11:00→20:23)
[2023-05-31 11:23] LABS: ALANINE AMINOTRANSFERASE 85 U/L (12-78); ALBUMIN 2.6 G/DL (3.4-5.0); ALBUMIN/GLOBULIN RATIO 0.9 (1.1-1.5); ALKALINE PHOSPHATASE 61 IU/L (46-116); ASPARTATE AMINO TRANSFERASE 157 U/L (10-37); BILIRUBIN,DIRECT 0.2 MG/DL (0-0.3); BILIRUBIN,TOTAL 0.5 MG/DL (0.1-1.0); TOTAL PROTEIN 5.5 G/DL (6.4-8.2)
--- NOTE | 2023-05-31 12:15 | NUR ---
RECOMMEND: 1. Daily bathing with no rinse skin cleanser. 2. Cream/Lotion to be applied to skin after bathing. 3. Effie care Q shift and prn soiling followed by with Barrier Cream. 4. Turn patient Q 1-2 hrs and reposition with pillows. 5. Float heels to offload pressure. 6. Hydrophylic foam to sacrum per policy.
[2023-05-31] MEDS: vancomycin inj 500 MG in normal saline 100ml IV soln 100 ML IV SCH (14:09)
--- NOTE | 2023-05-31 15:38 | NUR ---
Pt. has had two episodes in which he coughs and in turn his HR and BP elevate dramatically. Cardene turned on briefly during both episodes. Suctioned at those times. Will continue to monitor.
[2023-05-31] MEDS ORDERED: mineral oil/petrolatum ophthal oint EACHEYE PRN (16:35)
--- NOTE | 2023-05-31 16:38 | NUR ---
Pt. was coughing again. Run of VTACH noted. VSS.
[2023-05-31] MEDS ORDERED: propofol 1000mg/100ml bottle 100 ML IV SCH (19:20)
[2023-05-31] MEDS ORDERED: insulin glargine (Lantus) pen - multi-dose SQ SCH (21:00)
[2023-06-01] MEDS: methylPREDNISolone sod succ/PF 40mg inj. IV SCH
[2023-06-01] MEDS: ondansetron/PF 4mg/2ml inj IV PRN ×2 (00:21→13:44)
[2023-06-01] MEDS: midazolam 1 mg/ML 2ml injection IV PRN ×12 (00:21→13:44)
[2023-06-01] MEDS: HYDROmorphone inj. 0.5 MG/0.5 ML DISP.SYRIN IV PRN ×12 (00:21→19:07)
[2023-06-01] MEDS: dextrose 5%-normal saline 1,000 ML IV SCH (00:50)
--- NOTE | 2023-06-01 00:53 | NUR ---
pt transitioned to comfort care with orders to extubate - propofol stopped and versed/dilaudid given - extubated at 0040 to room air. daughters x2, brother and sis-in-law all at bedside and agree this is what the patient would want per his advanced directive forms - all ivf and gtts stopped
[2023-06-01] MEDS ORDERED: HYDROmorphone 1 mg/ml syringe ONE (05:12)
[2023-06-01 07:00] VITALS: BP 93/49
--- NOTE | 2023-06-01 09:52 | NUR ---
Pt. remains in ICU with stable vital signs. Family at bedside continuously. Comfort cart provided to family. Listening and reassurance offered to family. Questions answered as they arise. Will continue to medicate pt. with Versed and Dilaudid as needed for comfort. Hospitalist paged this morning to update on pt. status as family is requesting that Dr. Frazier not enter the pt's room this shift. warehouse team leader aware of situation.
--- NOTE | 2023-06-01 10:02 | NUR ---
Paged Dr. Nielsen as he is the hospitalist for pt. Family has questions.
--- NOTE | 2023-06-01 10:27 | NUR ---
RN updated Dr. Nielsen of pt's status and order to transfer pt. to floor. Stated he will come talk to family.
[2023-06-01] MEDS ORDERED: VANCOMYCIN LEVEL IV ONE (13:30)
--- NOTE | 2023-06-01 14:18 | NUR ---
Dr. Nielsen in to see pt. Spoke with family re. plan of care. Pt. to be moved to 4014 B.
--- NOTE | 2023-06-01 14:33 | NUR ---
Report called to Nurse Alyx. Will transfer pt. to 4014 when daughter gets back to room.
--- NOTE | 2023-06-01 14:33 | NUR ---
Patient in room ORTHO 4014B. I have received report from LAURA CAROLINA FROM ICU and had the opportunity to ask questions and assume patient care.
--- NOTE | 2023-06-01 15:00 | NUR ---
Pt. to 4014 B via bed with all belongings in stable condition. Dtr. and sister in law at bedside. Sister to text Karen STOVALL that pt. is in new room. Alyx SANCHEZ there to receive pt. Dr. Nielsen aware of pt's arrival.
--- NOTE | 2023-06-01 17:29 | NUR ---
Message: Niko, comfort care pt, can I put in a scopolamine patch, he's very wet. Lauren [id number] Transaction number: [id number]
[2023-06-01] MEDS: morphine 10mg/0.5ml (conc. morphine) oral syringe PO PRN ×2 (17:37→22:55)
[2023-06-01] MEDS: LORazepam 2 mg/ml vial IV PRN ×3 (17:38→23:10)
[2023-06-01] MEDS: scopolamine 1mg/72 hr patch TD SCH (17:47)
--- NOTE | 2023-06-01 18:30 | NUR ---
Patient in room ORTHO 4014. I have received report from SHENG and had the opportunity to ask questions and assume patient care. FAMILY AT THE BEDSIDE
[2023-06-01 19:00] VITALS: BP 117/63
--- NOTE | 2023-06-01 19:06 | NUR ---
Problems reprioritized. Patient report given, questions answered & plan of care reviewed with LAURA LOPEZ.
[2023-06-02] MEDS: HYDROmorphone inj. 0.5 MG/0.5 ML DISP.SYRIN IV PRN (01:46)
--- NOTE | 2023-06-02 06:07 | NUR ---
Problems reprioritized. Patient report given, questions answered & plan of care reviewed with
[2023-06-02 07:00] VITALS: BP 103/80
[2023-06-02] MEDS: morphine 10mg/0.5ml (conc. morphine) oral syringe PO PRN ×6 (07:18→21:51)
[2023-06-02] MEDS: LORazepam 2 mg/ml vial IV PRN ×2 (08:27→20:20)
--- NOTE | 2023-06-02 08:37 | NUR ---
Reassessment: Per EMR pt extubated 06/01 to palliative/comfort care. Pt remains NPO. Will continue to follow per LOS. Recommendations: 1. Bowel care per comfort care measures Addendum: 06/02/23 at [address] Amended: Links added.
--- NOTE | 2023-06-02 18:40 | NUR ---
Patient in room ORTHO 4014. I have received report from Meliza HAYNES and had the opportunity to ask questions and assume patient care.
--- NOTE | 2023-06-02 21:15 | NUR ---
friend of patient called to see what visiting hours were. Friend is Radha Ling [phone]. asked family in room if ok to have friend visit. talked to Karen on phone (daughter) [phone] and she wants Radha to call her first before visiting. gave information to radha.
--- NOTE | 2023-06-02 21:56 | NUR ---
pt having cheynne betancourt breathing. sitting high fowlers. daughter at bedside refuses any repositioning. texted other daughter romina and she also refused repositioning. provided mouth care. educated daughter on end of life symptoms. pt having apenic breathing with tongue blocking throat, then able to overcome and make weak cough at this time. roxinol given per daughter request. pt unable to open eyes or give birthdate. scans complete
--- NOTE | 2023-06-02 22:00 | NUR ---
Patients daughter did not want VS to be taken .
[2023-06-03] MEDS: HYDROmorphone inj. 0.5 MG/0.5 ML DISP.SYRIN IV PRN ×6 (06:01→22:01)
--- NOTE | 2023-06-03 06:30 | NUR ---
Problems reprioritized. Patient report given, questions answered & plan of care reviewed with Maya SANCHEZ.
[2023-06-03 10:00] VITALS: BP 159/72
[2023-06-04] MEDS: HYDROmorphone inj. 0.5 MG/0.5 ML DISP.SYRIN IV PRN ×10 (01:20→23:52)
--- NOTE | 2023-06-04 06:00 | NUR ---
reported to days. noted pt resting on back, family refuses reposition. dilaudid seems to keep patient comfortable.
--- NOTE | 2023-06-04 06:42 | NUR ---
Patient in room ORTHO 4014. I have received report from markell rahman and had the opportunity to ask questions and assume patient care.
[2023-06-04] MEDS: LORazepam 2 mg/ml vial IV PRN ×5 (08:30→22:52)
[2023-06-04 10:00] VITALS: BP 182/93
--- NOTE | 2023-06-04 12:27 | NUR ---
PTS DAUGHTERS ARE REFUSING ANY REPOSITIONING AT THIS TIME, WAS ABLE TO REPOSITION PILLOW BEHIND HIS BACK
[2023-06-04] MEDS: scopolamine 1mg/72 hr patch TD SCH (17:52)
--- NOTE | 2023-06-04 18:34 | NUR ---
Problems reprioritized. Patient report given, questions answered & plan of care reviewed with ady rahman.
[2023-06-04 22:00] VITALS: BP 180/90
[2023-06-05] MEDS: LORazepam 2 mg/ml vial IV PRN ×10 (01:06→22:43)
[2023-06-05] MEDS: HYDROmorphone inj. 0.5 MG/0.5 ML DISP.SYRIN IV PRN ×14 (02:15→19:31)
--- NOTE | 2023-06-05 06:39 | NUR ---
Problems reprioritized. Patient report given, questions answered & plan of care reviewed with RN'S ANDRADE
--- NOTE | 2023-06-05 06:47 | NUR ---
Patient in room ORTHO 4014. I have received report from Karolina SANCHEZ and had the opportunity to ask questions and assume patient care.
--- NOTE | 2023-06-05 06:55 | NUR ---
Patient in room ORTHO 4014. I have received report from Karolina SANCHEZ and had the opportunity to ask questions and assume patient care.
--- NOTE | 2023-06-05 06:56 | NUR ---
family does not want pt. to be repositioned, states" will cause cause him discomfort, what is the point he is dying". will continue to monitor.
--- NOTE | 2023-06-05 08:08 | NUR ---
Spoke with surgeon about wound vac settings, said that had multiple surgeries yesterday and he will put in the orders for setting today. Addendum: 06/05/23 at 0816 by Curtis Delarosa RN Note added to the wrong patient chart, disregard.
[2023-06-05 10:38] VITALS: BP 146/88
--- NOTE | 2023-06-05 13:29 | NUR ---
pt. family does not want us to turn and position pt. family member daughter states "preferably not" want us to turn and position pt.
[2023-06-05] MEDS: morphine 10mg/0.5ml (conc. morphine) oral syringe PO PRN ×4 (14:56→23:24)
--- NOTE | 2023-06-05 15:56 | NUR ---
Orientee documentation: I have reviewed all interventions, assessments performed and documented by Dhaval De Los Santos RN.
--- NOTE | 2023-06-05 15:57 | NUR ---
Orientee Medication Administration: For this medication-pass time frame, all medication were reviewed, dispensed, administered and documented per hospital policy by Dhaval De Los Santos RN.
--- NOTE | 2023-06-05 18:43 | NUR ---
Problems reprioritized. Patient report given to Kyra SANCHEZ, questions answered & plan of care reviewed with .
--- NOTE | 2023-06-05 19:57 | NUR ---
DILAUDID GIVEN AND SPOKE WITH FAMILY ABOUT WHAT WE CAN EXPECT. THEY STILL ARE REFUSING TO HAVE PATIENT REPOSITIONED AND DR. JENSEN IS AWARE OF THIS, VERBALLY TOLD FROM RN THAT WE DO NOT NEED TO OFFER ANY MORE THEY KNOW TO ASK IF THEY WANT THE PATIENT REPOSITIONED. FAMILY WANTING MEDS ORDERED AND TRIED TO EXPLAIN THAT I WOULD GIVE THEM I SEE THE NEED FOR THEM. WITH THE ROXANOL AND ATIVAN Q2 HRS, WE MAY NOT NEED THE DILAUDID [id number] IT WAS ORDERED. TANIKA, THE DAUGHTER WITH POA, WAS VISIBLY UPSET WITH THIS AND I NEEDED TO EXPLAIN THAT I WOULD NOT GIVE ALL OF THESE MEDS AT THE SAME TIME, WOULD STAGGER THEM AND WHEN DISTRESS NOTED, WOULD GIVE THE DILAUDID. SHE IS NOW WANTING TO KNOW IF MAYBE WE NEED TO JUST GET RID OF THE ROXANOL AND THE ATIVAN AND JUST DO THE DILAUDID [id number]. I DISCOURAGED THIS AND TOLD THEM I WILL WORK WITH THEM TO KEEP THEIR DAD COMFORTABLE SO WE WILL WORK TOGETHER ON HIS CARE TONIGHT.
[2023-06-06] MEDS: HYDROmorphone inj. 0.5 MG/0.5 ML DISP.SYRIN IV PRN ×7 (00:48→21:18)
[2023-06-06] MEDS: LORazepam 2 mg/ml vial IV PRN ×7 (01:35→20:01)
[2023-06-06] MEDS: morphine 10mg/0.5ml (conc. morphine) oral syringe PO PRN ×8 (04:03→21:59)
--- NOTE | 2023-06-06 06:25 | NUR ---
Problems reprioritized. Patient report given, questions answered & plan of care reviewed with Bryan RN.
--- NOTE | 2023-06-06 06:54 | NUR ---
Patient in room ORTHO 4014. I have received report from DANIEL HAYNES and had the opportunity to ask questions and assume patient care.
--- NOTE | 2023-06-06 17:00 | NUR ---
My preceptor Bryan witnessed the Xtra 1mg 1/2 ml being wasted, due to the pt. only needed 1/2ml = to 1mg.
[2023-06-06 18:00] VITALS: BP 103/77
--- NOTE | 2023-06-06 18:18 | NUR ---
Orientee documentation: I have reviewed all interventions, assessments performed and documented by Mario SANCHEZ . Orientee Administration: For this medication-pass time frame, all medication were reviewed, dispensed, administered and documented per hospital policy by Mario SANCHEZ.
--- NOTE | 2023-06-06 18:43 | NUR ---
Problems reprioritized. Patient report given TO HUMPHREY HAYNES, questions answered & plan of care reviewed with .
[2023-06-07] MEDS: morphine 10mg/0.5ml (conc. morphine) oral syringe PO PRN ×8 (00:41→17:34)
[2023-06-07] MEDS: LORazepam 2 mg/ml vial IV PRN ×8 (00:50→17:34)
--- NOTE | 2023-06-07 01:34 | NUR ---
LAN ENGINEER documentation: I have reviewed and agree with assessment performed and documented by HUMPHREY
[2023-06-07] MEDS: HYDROmorphone inj. 0.5 MG/0.5 ML DISP.SYRIN IV PRN ×7 (02:22→22:35)
--- NOTE | 2023-06-07 06:38 | NUR ---
Problems reprioritized. Patient report given, questions answered & plan of care reviewed with BENY RN.
[2023-06-07 07:17] VITALS: BP 86/44
[2023-06-07 10:00] VITALS: BP 220/155
--- NOTE | 2023-06-07 13:28 | NUR ---
pt. family does not want RN to turn pt. to left side states "he looks comfortable already".
--- NOTE | 2023-06-07 16:10 | NUR ---
ASKED FAMILY DAUGHTER SHANELL IF SHE WANTED PT. TO BE TURNED OVER TO THE RIGHT SIDE AND REFUSED STATING " NO HE'S COMFORTABLE ALREADY". WILL CONTINUE TO MONITOR.
[2023-06-07] MEDS: scopolamine 1mg/72 hr patch TD SCH (17:40)
[2023-06-07 18:00] VITALS: BP 62/36
--- NOTE | 2023-06-07 18:23 | NUR ---
Problems reprioritized. Patient report given TO CINTHYA SANCHEZ, questions answered & plan of care reviewed with .
--- NOTE | 2023-06-07 18:25 | NUR ---
Patient in room ORTHO 4014. I have received report from LAURA Wallace and had the opportunity to ask questions and assume patient care. Comfort care, patient appears to be well medicated and comfortable.
--- NOTE | 2023-06-07 19:35 | NUR ---
Problems reprioritized. Patient report given, questions answered & plan of care reviewed with LAURA Burr.
[2023-06-08] MEDS: morphine 10mg/0.5ml (conc. morphine) oral syringe PO PRN ×4 (00:01→07:57)
[2023-06-08] MEDS: LORazepam 2 mg/ml vial IV PRN ×2 (00:35→04:27)
--- NOTE | 2023-06-08 06:52 | NUR ---
Problems reprioritized. Patient report given, questions answered & plan of care reviewed with LAURA ALDRIDGE.
--- NOTE | 2023-06-08 07:49 | NUR ---
Patient resting well, RR rapid. Will continue to assess.
--- NOTE | 2023-06-08 08:18 | NUR ---
Patient has passed. Tele stip has been printed with confirmation.
--- NOTE | 2023-06-08 10:22 | NUR ---
Patient at 0810, Daughter at bedside and saw last breath. [facility] called and patient is possible candidate for tissue donation. I talked to Collette first and then Priyanka from [facility] called back and went through more questions and determined that his case is going to be reviewed for possible tissue donation but we can send him to [facility] for now since we do not have a morgue. Patients daughter aware that [facility] may call. Post mortem care done and [facility] is on their way to nut picker pt.
--- NOTE | 2023-06-08 10:29 | NUR ---
RN IS TO DOCUMENT YES TO ALL APPLICABLE AREAS Pronouncement of : 1. Time Physician Notified: [id number] 2. Date of : 06/08/2023 3. Time of : 809 4. DNR/Withdraw life support documented:Y 5. Monitor strip has been placed on chart:Y 6. Assessment process is of one-minute duration and includes following criteria: a) Patient is unresponsive to all stimuli: Y b) Pupils fixed and non-reactive:Y c) Auscultation of precordium reveals absence of heart tones:Y d) Auscultation of lungs reveals absence of breath sounds:Y e) Absence of blood pressure / all vital signs:Y f) QRS complexes are not present on monitor / EKG strip:Y g) Pacer spikes without capture:NA 4. Comments:
--- NOTE | 2023-06-08 11:30 | NUR ---
Patient has been picked up by milton Yanes Daughter notified.
== END 2023-06-08 11:30 | DRG 871 ==
LOC: ER 02:50 → ED HOLD 04:58 → ICU 2S 07:03 → ORTHO 4S 06-01 14:53
PROVIDERS: ADMIT Internal Medicine Critical Care Medicine; ATTEND Internal Medicine Critical Care Medicine
PROC: 5A1945Z Respiratory Ventilation, 24-96 Consecutive Hours (ICD-10-PCS; principal; 2023-05-29)
PROC: 5A12012 Performance of Cardiac Output, Single, Manual (ICD-10-PCS; 2023-05-29)
PROC: B32T1ZZ Computerized Tomography (CT Scan) of Left Pulmonary Artery using Low Osmolar Contrast (ICD-10-PCS; 2023-05-29)
PROC: B3201ZZ Computerized Tomography (CT Scan) of Thoracic Aorta using Low Osmolar Contrast (ICD-10-PCS; 2023-05-29)
PROC: B32S1ZZ Computerized Tomography (CT Scan) of Right Pulmonary Artery using Low Osmolar Contrast (ICD-10-PCS; 2023-05-29)
PROC: 0BH18EZ Insertion of Endotracheal Airway into Trachea, Via Natural or Artificial Opening Endoscopic (ICD-10-PCS; 2023-05-29)
DX: A41.9 Sepsis, unspecified organism (principal); I50.23 Acute on chronic systolic (congestive) heart failure; N17.0 Acute kidney failure with tubular necrosis; R65.21 Severe sepsis with septic shock; K27.4 Chronic or unspecified peptic ulcer, site unspecified, with hemorrhage; J96.21 Acute and chronic respiratory failure with hypoxia; J44.1 Chronic obstructive pulmonary disease with (acute) exacerbation; I13.0 Hypertensive heart and chronic kidney disease with heart failure and stage 1 through stage 4 chronic kidney disease, or unspecified chronic kidney disease; I47.20 Ventricular tachycardia, unspecified; N39.0 Urinary tract infection, site not specified; Z66 Do not resuscitate; R73.9 Hyperglycemia, unspecified; E83.51 Hypocalcemia; Z20.822 Contact with and (suspected) exposure to COVID-19; I46.9 Cardiac arrest, cause unspecified; I49.01 Ventricular fibrillation; E87.6 Hypokalemia; I25.10 Atherosclerotic heart disease of native coronary artery without angina pectoris; N18.30 Chronic kidney disease, stage 3 unspecified; Z51.5 Encounter for palliative care; Z79.01 Long term (current) use of anticoagulants; Z79.899 Other long term (current) drug therapy
CPT/HCPCS: 36415; 36600; 70450; 71045; 71275; 80048; 80053; 80076; 80305; 81001; 82550; 82803; 82948; 83605; 83735; 83880; 84100; 84132; 84145; 84478; 84484; 85007; 85018; 85025; 85610; 85730; 87040; 87070; 87081; 87088; 87811; 92950; 93005; 93306; 94002; 94003; 94640; 94760; 94799; 99285; A4615; A6213; A6258; A6449; A7015; C1751; C1758; C9113; G0378; J0171; J1170; J1644; J1815; J2060; J2250; J2405; J2543; J2704; J2920; J2930; J3010; J3370; J3475; J3480; J3490; J7040; J7042; J7070; Q9967